=== PATIENT | male | born 1960 | race Caucasian/White ===

== ENCOUNTER 2025-06-08 15:15 | Outpatient (AMB) | payer BC, MEDICARE, SELFPAY ==
--- OUTSIDE RECORDS SUMMARY | 2025-03-26 05:00 | XMS_ITS | Encounter Summary ---
Author Name [facility] [facility] Address [address] [place] [address] Care Team Providers Care Electrical Technician Name Role Phone RHETT SELLERS Primary Care Provider Unavail able Insurance Providers: All historical and current Section Date Range: From patient's date of to the date document was created. This section includes the names of all active insurance providers for the patient. Insurance Provider Type of Coverage Plan Name Start of Policy Coverage End of Policy Coverage Group Number Member ID Insurance Provider's Telephone Number Policy Mcintyre's Name Patient's Relationship to Policy Mcintyre ANTHE[place] [employer] [place] FEDERAL PREFERRED PROVIDER ORGANIZAT ION (PPO) BASIC SELF Nov 01, 2001 111 [id number] [phone] AMENA GRIGSBY [place] PREFERRED PROVIDER ORGANIZAT ION (PPO) FEP BASIC IND Nov 01, 2001 [id number] [phone] AMENA GRIGSBY PATIENT [place] PREFERRED PROVIDER ORGANIZAT ION (PPO) FEP BASIC IND Nov 01, 2001 111 [id number] [phone] AMENA GRIGSBY PATIENT [place] PREFERRED PROVIDER ORGANIZAT ION (PPO) FEP BASIC IND Nov 01, 2001 [id number] [phone] AMENA GRIGSBY PATIENT [place] PREFERRED PROVIDER ORGANIZAT ION (PPO) FEP BASIC IND Nov 01, 2001 [id number] [phone] AMENA GRIGSBY [place] PREFERRED PROVIDER ORGANIZAT ION (PPO) PSHB BASIC SELF Oct 21, 2024 [id number] AMENA GRIGS[place] PREFERRED PROVIDER ORGANIZAT ION (PPO) BASIC SELF Nov 01, 2001 [id number] AMENA GRIGSBY [place] DENTAL DENTAL INSURANCE BASIC Nov 01, 2001 DENTAL [id number] AMENA GRIGSBY [place] [employer] ([id number]) PRESCRIPT ION FEPRX Nov 01, 2001 [id number] [phone] AMENA GRIGSBY [employer] F[employer] BCBS PRESCRIPT ION CAR[place] FEPRX PLAN Nov 01, 2001 [id number] AMENA GRIGSBY [place] FEPRX PLAN PRESCRIPT ION CAREM [place] FEPRX Nov 01, 2001 [id number] AMENA GRIGSBY PATIENT MEDICARE ([facility]) MEDICARE () PART A Nov 21, 2016 PART A [id number] AMENA GRIGSBY PATIENT MEDICARE ([facility]) MEDICARE () PART B Nov 21, 2016 PART B [id number] AMENA GRIGSBY PATIENT MEDICARE ([facility]) MEDICARE () PART A Nov 21, 2016 PART A [id number] AMENA GRIGSBY PATIENT MEDICARE ([facility]) MEDICARE () PART A Nov 21, 2016 PART A [id number] AMENA GRIGSBY PATIENT MEDICARE ([facility]) MEDICARE () PART B Nov 21, 2016 PART B [id number] [id number] AMENA GRIGSBY PATIENT MEDICARE ([facility]) MEDICARE () PART B Nov 21, 2016 PART B [id number] AMENA GRIGSBY PATIENT Selected Encounter This section includes the information on record at [place] for the Encounter. Date/Time Encounter Type Encounter Description Reason Provider Source Mar 26, 2025 09:00 AM [facility] Encounter Template Text not used by [place] Plan of Treatment: Future Appointments (+ 6 months) and Future Tests (+/- 45 days) The Plan of Treatment section includes future care activities for the patient from [facility] [place] [facility] This section includes future appointments and future orders which are active, pending or scheduled. Future Appointments This section includes appointments that were scheduled to occur 6 months from the date of the Encounter, up to a maximum of 20 appointments. The data comes from all [place] treatment facilities. Appointment Date/Time Appointment Type Appointme nt Facility Name Apr 15, 2025 09:00 AM AMBULATORY - [facility]ATRY [facility] Apr 21, 2025 11:00 AM AMBULATORY - PSYCHIATRY [facility] May 12, 2025 09:00 AM AMBULATORY - PSYCHIATRY [facility] Jun 11, 2025 11:00 AM AMBULATORY - PSYCHIATRY [facility] Jun 17, 2025 10:00 AM AMBULATORY - PSYCHIATRY [facility] Jun 23, 2025 10:00 AM AM[facility] MEDICINE [facility] Social History: Smoking Status (Most current) and Tobacco Use (All prior to encounter date) This section includes the most current, and the historical, smoking and tobacco- related health factors from the [place] facility where the Encounter took place. Current Smoking Status This section includes the most current smoking, or tobacco-related health factor, from the [place] facility where the Encounter took place. Date/Time Current Smoking Status Comment Debby wilkerson [facility] 2024 10[facility] [place] Tobacco Use History This section includes a history of the smoking, or tobacco-related health factors, that were collected on or before the date of the Encounter. The data comes from the [place] facility where the Encounter took place. Date/Time Smoking Status/Tobacco Use Comment F acility May 14, 2023 11:00 AM [place] [place] [place] Apr 24, 2022 10:00 AM [place] [place] Dec 04, 2018 09:52 AM [place] Apr 09, 2018 12:50 PM LIFETIME NON-TOBACCO USER [place] February 20, 2017 09:45 AM QUIT TOBACCO USE > 7 YEARS AGO [place] Oct 24, 2015 10:18 AM LIFETIME NON-TOBACCO USER [place] Nov 01, 2004 09:47 AM LIFETIME NON-SMOKER [place] Encounter Notes: All associated encounter notes This section contains the clinical notes associated to the Encounter. Date/Time Encounter Note(s) Provider Source Mar 26, 2025 09:32 AM CLERICAL NOTE: LOCAL TITLE: APPOINTMENT NO SHOW STANDARD TITLE: CLERICAL NOTE DATE OF NOTE: MAR 26, 2025@09:32 ENTRY DATE: MAR 26, 2025@09:32:47 AUTHOR: [facility] EXP COSIGNER: URGENCY: STATUS: COMPLETED Patient Name: AMENA GRIGSBY Patient SSN: [id number] Date and time of Appointment No show : 03/26/25 09:00 PATIENT PHONE - PHONE NUMBER [CELLULAR] - NONE FOUND Patient's medical record was reviewed. Follow-up actions were determined and initiated: Please check/complete as applies: [X]Telephoned Directly [ ]Re-scheduled for next available appt [X]Sent a N0-show letter ( must call for appointment) [ ]Other (Emergent/Overbook, etc.): Additional Comments: Undersigned called and spoke to . He apologized for missing the appointment. Next appointment on 04/15 at 9am via [facility]. Future Clinic Visits 04/15/2025 09:00 [facility] 4 06/17/2025 10:00 [facility] 2 /es/ [facility] PSYD Clinical Psychologist Signed: 03/26/2025 09:33 [facility] ARLETTE
== END 2025-06-08 15:27 | disposition home or self-care (01) ==
LOC: HO.HMGAL 15:15
PROVIDERS: PCP Internal Medicine; Visit Provider Registered Nurse Emergency
DX: J30.89 Other allergic rhinitis (principal)
CPT/HCPCS: 95117; 95165

== ENCOUNTER 2025-08-04 15:32 | Outpatient (AMB) | payer MEDICARE, BC, SELFPAY | END 2025-08-04 15:32 | disposition home or self-care (01) | LOC: HO.HMGAL 15:32 | PROVIDERS: PCP Nurse Practitioner Primary Care; Visit Provider Registered Nurse Emergency | DX: J30.89 Other allergic rhinitis (principal) | CPT/HCPCS: 95117; 95165 ==

== ENCOUNTER 2025-08-30 11:36 | Outpatient (AMB) | payer MEDICARE, BC, SELFPAY | END 2025-08-30 11:42 | disposition home or self-care (01) | LOC: HO.HMGAL 11:36 | PROVIDERS: PCP Nurse Practitioner Primary Care; Visit Provider Registered Nurse Emergency | DX: J30.89 Other allergic rhinitis (principal) | CPT/HCPCS: 95117; 95165 ==

== ENCOUNTER 2025-10-11 14:02 | Outpatient (AMB) | payer MEDICARE, BC, SELFPAY | END 2025-10-11 14:05 | disposition home or self-care (01) | LOC: HO.HMGAL 14:02 | PROVIDERS: PCP Nurse Practitioner Primary Care; Visit Provider Registered Nurse Emergency | DX: J30.89 Other allergic rhinitis (principal) | CPT/HCPCS: 95117; 95165 ==